=== PATIENT | female | born 1985 | race Caucasian/White ===

== ENCOUNTER → 2018-01-21 10:58 | Outpatient (CLI) | payer OTHER, SELFPAY ==
[2018-01-21 11:46] LABS: Add Manual Diff / Slide Review NO; Basophils Percent Auto 0.5 % (0-2); Eosinophils Percent Auto 1.8 % (2-4); Hematocrit 38.7 % (36-46); Hemoglobin 13.3 g/dL (12.0-16.0); Lymphocytes Percent Auto 15.4 % (25-40); Mean Corpuscular HGB Conc 34.5 % (30-36); Mean Corpuscular Hemoglobin 31.6 PG (26-34); Mean Corpuscular Volume 91.8 fL (80-100); Monocytes Percent Auto 6.9 % (3-14); Neutrophils Absolute Auto 6400 /uL (3000-5900); Neutrophils Percent Auto 75.4 % (50-75); Platelet Count 164 X10^3/uL (150-400); Red Blood Cell Count 4.21 X10^6/uL (4.0-5.2); Red Cell Distribution Width 12.1 % (11.6-14.8); White Blood Cell Count 8.4 X10^3/uL (4.5-11.0)
[2018-01-21 15:53] LABS: Hepatitis B Surface Antigen NEGATIVE s/c (NEGATIVE); Rubella Antibody IgG 33.3 IU/mL (>15)
[2018-01-21 16:11] LABS: HIV 1 and 2 Antibody NEGATIVE (NEGATIVE); Hep C Virus Ab w/Reflex Quant NEGATIVE s/c (NEGATIVE)
[2018-01-21 17:47] LABS: Appearance Urine UA CLEAR; Bilirubin Urine UA NEGATIVE (NEGATIVE); Color Urine UA YELLOW; Glucose Urine UA NEGATIVE (Normal); Ketones Urine UA NEGATIVE (NEGATIVE); Leukocyte Esterase Urine UA NEGATIVE (NEGATIVE); Nitrite Urine UA Negative (Negative); Occult Blood Urine UA NEGATIVE (Negative); Protein Urine UA NEGATIVE (Negative); Specific Gravity Urine UA 1.015 (1.000-1.035); Urobilinogen Urine UA 0.2 E.U./dL (0.2); pH Urine UA 6.5 (4.5-8.0)
[2018-01-23 19:26] LABS: HSV 2 IGG AB < 0.90 index (< 0.90); HSV1IGG < 0.90 index (< 0.90)
[2018-01-29 11:51] LABS: Rapid Plasma Reagin NON-REACTIVE
== END ==
PROVIDERS: PCP Specialist; Visit Provider Specialist
DX: Z34.90 Encounter for supervision of normal pregnancy, unspecified, unspecified trimester (principal)
CPT/HCPCS: 36415; 80055; 81003; 86695; 86696; 86703; 86787; 86803; 86850; 86900; 86901; 87086

== ENCOUNTER → 2018-02-04 12:47 | Outpatient (CLI) | payer OTHER, SELFPAY ==
[2018-02-04 13:03] LABS: Specimen Label KIT TEST
== END ==
PROVIDERS: PCP Specialist; Visit Provider Specialist
DX: Z34.91 Encounter for supervision of normal pregnancy, unspecified, first trimester (principal)
CPT/HCPCS: 36415

== ENCOUNTER → 2018-04-08 10:22 | Outpatient (CLI) | payer OTHER, SELFPAY ==
--- NOTE | 2018-04-08 10:23 | DI.US.S_ITS ---
PROCEDURE: US OB >= 14 WEEKS FETUS INDICATIONS: 20 WEEK ANATOMIC SURVEY OUTSIDE/PRIOR DATING DATA: Last menstrual period (LMP): 11/14/17. LMP-based estimated date of delivery (ANTONINO): 08/21/18. First dating scan (date and location): 04/08/18. Estimated date of delivery (ANTONINO) from first dating scan: 08/22/18. TECHNIQUE: Real-time scanning was performed of the fetus, with image documentation and biometric measurements. Endovaginal scanning: No COMPARISON: [facility], , OB <= 14 WEEKS FETUS, 01/21/2018, 10:12. FINDINGS: General: A single living intrauterine gestation is present. Presentation: Breech. Placenta: Placental position is anterior, without previa. Amniotic fluid index: 14.4 cm, normal range is 5-24 cm. heart rate: 137 beats per minute. Maternal cervical canal: 3.8 cm long. Normal lower limit is 2.5 cm. biometrics: Biparietal diameter: 20 weeks 5 days Head circumference: 20 weeks 4 days Abdominal circumference: 21 weeks Femur length: 19 weeks 5 days Estimated gestational age from initial scan: not applicable. Composite gestational age from present scan: 20 weeks 4 days Estimated weight and percentile: 353 g; 30th percentile Measurement variability for biometric dating: +/- 7 days from 14 weeks to 15 weeks 6 days gestation, +/- 10 days from 16 weeks to 21 weeks 6 days gestation, +/- 2 weeks from 22 weeks to 27 weeks 6 days gestation, +/- 3 weeks for 28 weeks gestation or later. weight reference: 4500 g or EFW >90/95% is considered macrosomia or large for gestational age. EFW <10% is small for gestational age. EFW 5% or less is considered intra-uterine growth restriction. Anatomic survey: Neuro: Ventricles are non-dilated at less than 10 mm. Cisterna magna is normal at 3-11 mm. Cerebellum is normal in size and morphology. Nuchal skin fold: Normal at less than 6 mm between 14-21 weeks gestational age. Face: Nose and lips, facial profile are normal. Spine: No evidence for spina bifida. Heart: 4-chambered heart is present, with normal ventricular outflow tracts. Diaphragm: Diaphragm is intact. Stomach: Left-sided stomach is present. Kidneys: No hydronephrosis. Normal is less than 5 mm in 2nd trimester, less than 7 mm in 3rd trimester. Cord: 3-vessel cord has orthotopic insertion. Bladder: Normal in size. Extremities: All 4 extremities identified. IMPRESSION: 1. Single living IUP redemonstrated and interval growth is normal. 2. Normal anatomic survey. Dictated by: Marc Peraza [facility] Interpreted: Rolf Gramajo MD on 04/08/2018 at 11:47 Approved by: Rolf Gramajo M.D. on 04/08/2018 at 14:07
== END ==
PROVIDERS: PCP Specialist; Visit Provider Specialist
DX: Z34.92 Encounter for supervision of normal pregnancy, unspecified, second trimester (principal); Z3A.20 20 weeks gestation of pregnancy
CPT/HCPCS: 76811

== ENCOUNTER → 2018-07-20 14:17 | Outpatient (CLI) | payer OTHER, SELFPAY ==
[2018-07-21 14:09] LABS: Strep Grp B PCR NEG for Grp B Strep
== END ==
PROVIDERS: PCP Specialist
DX: Z34.81 Encounter for supervision of other normal pregnancy, first trimester (principal)
CPT/HCPCS: 87653

== ENCOUNTER 2018-07-27 15:45 | Outpatient (CLI) | payer OTHER, SELFPAY ==
--- NOTE | 2018-07-27 17:01 | P.TNLD_ITS ---
Visit Information Visit Information Date of evaluation: 07/27/18 Primary OB Provider: Batsheva Hummel On-call OB Provider: Lou Parkinson Reason for Evaluation: Yes rule out labor Comments/Additional reasons for admission: Pt here with abdominal cramping and concerns for LOF. No vaginal bleeding. Feeling baby move regularly. Cramping started last night, around 30 minutes after intercourse. LOF occurred shortly after intercourse, no significant leaking since that time. Evaluation Evaluation Baseline heart rate: 130 Variability: Moderate (11-25) monitor accelerations: Present monitor decelerations: Absent Contraction Frequency (minutes): 6 Uterine Contraction Intensity: Mild Category of Tracing: I Cervical dilation (cm): 1 Cervical effacement (%): 60 station: 0 Non-invasive Membranes Rupture Test: negative Diagnosis, Plan/Disposition Final Diagnosis (1) contractions: Current Visit: No Status: Acute Plan/Disposition Plan: 33yo at 36w4d here with concerns for contractions and LOF. Negative amnisure. Pt is malcolm on monitor, however mild to palpation. Cervix 1cm external os, closed internal os and unchanged from multiple hours ago in [place]. Okay for discharge home. Had requested U/A be completed prior to discharge, but does not appear that this was completed. Recommend pt increase fluid intake, avoid intercourse short-term until contractions stop. Recommend staying on [facility] overnight to continue to monitor contractions, ensure don't worsen.
== END 2018-07-27 17:00 | disposition home or self-care (01) ==
LOC: OB 07-29 11:05
PROVIDERS: PCP Specialist; Visit Provider Family Medicine
DX: Z34.83 Encounter for supervision of other normal pregnancy, third trimester (principal); Z3A.36 36 weeks gestation of pregnancy; O47.9 False labor, unspecified
CPT/HCPCS: 59025; 59050; 84112; G0378; G0379

== ENCOUNTER 2018-08-03 20:12 | Inpatient (IN) | payer OTHER, SELFPAY ==
[2018-08-03] MEDS: LACTATED RINGERS 1,000 ML 100 ML IV (20:45)
[2018-08-03 20:52] LABS: Add Manual Diff / Slide Review NO; Basophils Percent Auto 0.6 % (0-2); Eosinophils Percent Auto 0.4 % (2-4); Hemoglobin 12.7 g/dL (12.0-16.0); Lymphocytes Percent Auto 10.9 % (25-40); Mean Corpuscular HGB Conc 34.4 % (30-36); Mean Corpuscular Hemoglobin 31.5 PG (26-34); Mean Corpuscular Volume 91.4 fL (80-100); Monocytes Percent Auto 5.6 % (3-14); Neutrophils Absolute Auto 10100 /uL (1500-7000); Neutrophils Percent Auto 82.5 % (50-75); Platelet Count 138 X10^3/uL (150-400); Red Blood Cell Count 4.05 X10^6/uL (4.0-5.2); White Blood Cell Count 12.3 X10^3/uL (4.5-11.0)
[2018-08-03] MEDS: ONDANSETRON 4 MG/2 ML INJ IV (21:52)
[2018-08-03 22:18] VITALS: BP 104/68
--- NOTE | 2018-08-04 07:28 | P.HPOB_ITS ---
OB HPI Date/Time Date of admission: 08/03/18 Date Patient Seen: 08/04/18 Time Patient Seen: 07:27 History of Present Condition Chief complaint: LABOR & DELIVERY : 2 Para: 0 Estimated Date of Delivery: 08/20/18 Estimated Gestational Age (weeks): 37 Narrative: Lyssa Dillon is a 33 year old female admitted with spontaneous rupture membranes in active labor History of Present care: none Dating criteria: LMP confirmed by 1st trimester US Ultrasounds: normal mid trimester US Obstetrical complications: none Medical complications: none Preadmission Labs Blood type: A (-) negative -: Antibody screen: negative, GBS status: negative, HBsAG: negative, HIV: negative, HSV 1: negative, HSV 2: negative and RPR/VDLR: negative -: Rubella: immune and Varicella: immune Cell-free DNA: Normal male Prior (ies) History: 2017 SAB Evaluation Evaluation Baseline heart rate: 135 Variability: Moderate (11-25) monitor accelerations: Present monitor decelerations: Absent Contraction Frequency (minutes): 2 Uterine Contraction Intensity: Moderate Category of Tracing: I Cervical dilation (cm): 9 Cervical effacement (%): 100 station: 0 Laboratory results: Laboratory Tests 08/03/18 08/03/18 20:14 20:14 WBC 12.3 H RBC 4.05 Hgb 12.7 Hct 37.0 MCV 91.4 MCH 31.5 MCHC 34.4 RDW 13.0 Plt Count 138 L Neut % (Auto) 82.5 H Lymph % (Auto) 10.9 L F[place]ardo % (Auto) 5.6 Eos % (Auto) 0.4 L Baso % (Auto) 0.6 Neut # (Auto) 96891 H Blood Type A Negative Antibody Screen Positive Antibody Identification Anti-D PFSH Medical History Exercise-induced asthma (Chronic) Social History Smoking Status: Never smoker Meds Home Medications Medication Instructions Recorded Confirmed Type vit-iron fum-folic ac 1 cap PO QDAY #0 06/12/17 08/03/18 History [Mynatal] omeprazole 40 mg capsule,delayed 40 mg PO DAILY #30 cap 05/10/18 08/03/18 Rx release Allergies Allergy/AdvReac Type Severity Reaction Status Date / Time epinephrine AdvReac Intermediate Fainting Verified 08/03/18 21:55 No Known Allergies Allergy Unknown Uncoded 08/03/18 20:40 Review of Systems Review of Systems Patient denies signs and symptoms of preeclampsia. She had spontaneous rupture of membranes. Good regular contractions. All systems reviewed & are unremarkable except as noted in HPI and below Exam Vital Signs (past 8 hours): Blood pressure 115/64, temperature 98.8?, pulse 64 Narrative Exam Narrative: HEENT exam within normal limits. Lungs are clear to auscultation and percussion. Heart is regular rate and rhythm no S3-S4 or murmurs. Abdomen is gravid. is vertex. Extremities with no edema and nontender. Objective Labs Result Diagrams: 08/03/18 20:14 Labs: Laboratory Results - last 24 hr 08/03/18 08/03/18 20:14 20:14 WBC 12.3 H RBC 4.05 Hgb 12.7 Hct 37.0 MCV 91.4 MCH 31.5 MCHC 34.4 RDW 13.0 Plt Count 138 L Neut % (Auto) 82.5 H Lymph % (Auto) 10.9 L [place] % (Auto) 5.6 Eos % (Auto) 0.4 L Baso % (Auto) 0.6 Neut # (Auto) 83085 H Blood Type A Negative Antibody Screen Positive Antibody Identification Anti-D Assessment and Plan (1) 37 weeks gestation of : Current visit: Yes Status: Acute Plan: Plan: 37wk 5d gestation in active labor. Patient requested epidural catheter. Anticipate vaginal delivery.
[2018-08-04] MEDS: OXYTOCIN PREMIX 30 UNIT/500 ML PLAST..BAG IV (08:20)
--- NOTE | 2018-08-04 12:10 | PM.OBPRVD ---
Delivery date: 08/04/18 Intrapartal events: None Induction method: none Delivery augmentation: pitocin Delivery monitor: external FHT and external uterine Route of delivery: Laceration description: Vaginal - 2nd Degree (Left sidewall) Estimated blood loss (mL): 200 Anesthesia type: Epidural Narrative: Patient arrived on Labor and delivery with spontaneous rupture membranes in active labor. She progressed normally. Category 1 tracing throughout labor. She did have a epidural for pain control. Patient did get started on Pitocin augmentation at 9 cm. She delivered spontaneously, over an intact perineum. The male infant was placed on the maternal abdomen. After the cord stopped pulsating the cord was clamped cut and cord bloods obtained. The placenta delivered spontaneously, intact, with 3 vessels. Patient was found to have a second-degree vaginal left sidewall tear that was repaired with 3 0 chromic suture. Both mother doing well. Baby weighed 6 lb 10 oz, 3010 g Estimated blood loss 200 cc. [place] Baby 1: gender: Male Presentation: vertex position: Right Occiput Anterior Placenta delivery description: Spontaneous cord vessel description: 3 Vessels score (1 min): 8 score (5 min): 9 Plan for aftercare: Routine post care
[2018-08-04] MEDS: IBUPROFEN 600 MG TABLET PO (20:29)
[2018-08-04] MEDS: DERMOPLAST SPRAY 20% 60 ML 1 SPRAY TOP (20:29)
[2018-08-05] MEDS: IBUPROFEN 600 MG TABLET PO ×2 (03:59→10:03)
--- NOTE | 2018-08-05 07:22 | PM.OBDS.1 ---
Discharge Providers Date of admission: 08/03/18 20:12 Primary care physician: Batsheva Hummel MD Consults: 08/03/18 20:14 Consult to Anesthesiology Urgent Comment: Consulting Provider: Anesthesiologist Reason for consultation: Epidural Has provider been notified: No 08/04/18 12:17 Consult to Tool And Machine Maintainer Routine Comment: Discharge provider: Batsheva Hummel MD Discharge Date: 08/05/18 Summary Date Patient Seen: 08/05/18 Time Patient Seen: 07:24 Hospital Course: Patient arrived on Labor and delivery with spontaneous rupture membranes in active labor. She received an epidural catheter for pain control. She had spontaneous delivery of a viable male infant. She had a second-degree vaginal laceration that was repaired. Patient denies any signs or symptoms of preeclampsia. She is urinating and ambulating well. Blood pressure 104/64 pulse 66 temperature 98.3? Abdomen is soft, nontender. Uterus is firm, at U, nontender. Mild lochia. Extremities without edema, nontender. Patient is rubella immune. Baby is Rh negative so no RhoGAM is needed. Patient received Tdap in the 3rd trimester. Peripartum Data Delivery Method: Natural Vaginal Laceration description: Vaginal - 2nd Degree Procedures: Epidural catheter, vaginal delivery, repair of second-degree vaginal tear. complications: none Discharge Diagnosis (1) Vaginal delivery: Status: Acute (2) 37 weeks gestation of : Status: Acute Status at Discharge Functional status at discharge: independent ambulation Overall status at discharge: patient is progressing back to baseline Time Spent with Patient Total time spent providing and/or coordinating discharge services: Less than 30 minutes Objective Labs Result Diagrams: 08/03/18 20:14 Labs: Laboratory Results - last 24 hr 08/03/18 20:14 Antibody Identification Anti-D Discharge Plan Discharge Plan Patient Disposition: Home Discharge Med Rec/Prescriptions Prescriptions: New hydrocodone-acetaminophen 5-325 mg Tablet 2 tab PO Q4HR Qty: 20 RF: 0 ibuprofen 600 mg Tablet 600 mg PO Q6HR PRN (Reason: Pain, Mild (1-3)) Qty: 30 RF: 0 No Action vit-iron fum-folic ac [Mynatal] 1 EACH capsule 1 cap PO QDAY Qty: 0 RF: 0 omeprazole 40 mg capsule,delayed release(DR/EC) 40 mg PO DAILY Qty: 30 RF: 1 Follow up/Referrals: Foist,Batsheva B, MD [Primary Care Provider] - 1 Month (September 02 in [place]) Provider Discharge Instructions Diet: Regular Activity: Nothing in vagina for 4 weeks Skin/Wound/Dressing Care Report to your healthcare provider any signs of infection, such as:: chills, fever and increased pain Discharge Data Primary Care Provider: Batsheva Hummel Attending Provider: Batsheva Hummel Admit Date/Time: 08/03/18 20:12
[2018-08-05 08:16] LABS: Add Manual Diff / Slide Review NO; Basophils Percent Auto 0.4 % (0-2); Eosinophils Percent Auto 1.2 % (2-4); Hematocrit 32.2 % (36-46); Hemoglobin 10.9 g/dL (12.0-16.0); Lymphocytes Percent Auto 12.8 % (25-40); Mean Corpuscular HGB Conc 33.8 % (30-36); Mean Corpuscular Hemoglobin 31.6 PG (26-34); Mean Corpuscular Volume 93.7 fL (80-100); Monocytes Percent Auto 7.6 % (3-14); Neutrophils Absolute Auto 10500 /uL (1500-7000); Platelet Count 114 X10^3/uL (150-400); Red Blood Cell Count 3.44 X10^6/uL (4.0-5.2); Red Cell Distribution Width 13.1 % (11.6-14.8); White Blood Cell Count 13.5 X10^3/uL (4.5-11.0)
[2018-08-05 13:01] VITALS: BP 101/60; PULSE 77; RESP 16; TEMP 36.7
== END 2018-08-05 14:15 | disposition home or self-care (01) | DRG 807 ==
PROVIDERS: Admitting Provider Specialist; PCP Specialist; Visit Provider Specialist
DX: O71.4 Obstetric high vaginal laceration alone (principal); Z37.0 Single live birth; Z3A.37 37 weeks gestation of pregnancy
CPT/HCPCS: 01967; 36415; 59050; 59400; 85025; 86850; 86870; 86900; 86901; G0379; J2405; J2590; J3010

== ENCOUNTER → 2019-09-22 14:22 | Outpatient (ROUT) | payer OTHER, SELFPAY ==
[2019-09-22 16:56] LABS: Urine N gonorrhoeae NOT DETECTED
[2019-09-22 17:13] LABS: Urine Chlamydia NOT DETECTED
== END ==
PROVIDERS: PCP Specialist; Visit Provider Specialist
DX: Z34.81 Encounter for supervision of other normal pregnancy, first trimester (principal)
CPT/HCPCS: 87491; 87591

== ENCOUNTER → 2019-12-02 11:59 | Outpatient (CLI) | payer OTHER, SELFPAY ==
[2019-12-02 12:44] LABS: Appearance Urine UA CLEAR; Bilirubin Urine UA NEGATIVE (NEGATIVE); Color Urine UA YELLOW; Glucose Urine UA NEGATIVE (Negative); Ketones Urine UA NEGATIVE (NEGATIVE); Leukocyte Esterase Urine UA TRACE (NEGATIVE); Nitrite Urine UA NEGATIVE (Negative); Occult Blood Urine UA NEGATIVE (Negative); Protein Urine UA NEGATIVE (Negative); Urobilinogen Urine UA 0.2 E.U./dL (0.2)
[2019-12-02 12:50] LABS: Add Manual Diff / Slide Review NO; Basophils Absolute Auto 0 /uL (0-100); Basophils Percent Auto 0.2 % (0-2); Eosinophils Absolute Auto 100 /uL (0-450); Eosinophils Percent Auto 1.7 % (2-4); Hematocrit 36.6 % (36-46); Hemoglobin 12.7 g/dL (12.0-16.0); Lymphocytes Absolute Auto 1400 /uL (1100-4500); Lymphocytes Percent Auto 17.9 % (25-40); Mean Corpuscular HGB Conc 34.6 % (30-36); Mean Corpuscular Hemoglobin 31.9 PG (26-34); Monocytes Absolute Auto 500 /uL (0-900); Neutrophils Absolute Auto 5900 /uL (1500-7000); Neutrophils Percent Auto 74.2 % (50-75); Platelet Count 149 X10^3/uL (150-400); Red Blood Cell Count 3.98 X10^6/uL (4.0-5.2); Red Cell Distribution Width 12.7 % (11.6-14.8)
[2019-12-02 13:09] LABS: Amorphous Sediment Urine 1+; Bacteria Urine Many (>30); RBC Urine None Seen (0-5/HPF); Squamous Epithelial Cell Urine 5-10 /HPF (0-5/HPF); WBC Urine 1-5/HPF (0-5/HPF); pH Urine UA 7.5 (4.5-8.0)
[2019-12-03 05:36] LABS: RPR Screen Non Reactive (Non Reactive)
[2019-12-03 08:38] LABS: Varicella IgG Antibody 513 index (Immune >165)
[2019-12-05 15:56] LABS: Hepatitis B Surface Antigen NEGATIVE s/c (NEGATIVE); Rubella Antibody IgG 30.9 IU/mL (>15)
[2019-12-05 16:13] LABS: HIV 1 & 2 Ab/Ag 4th Gen Combo NEGATIVE (NEGATIVE); Hep C Virus Ab w/Reflex Quant NEGATIVE s/c (NEGATIVE)
[2019-12-06 20:35] LABS: AFP, Serum 64.6 ng/mL (.); Calc Gestational Age Ultrasound (.); Estriol, Free 1.44 ng/mL (.); Inhibin A, Dimeric 120.02 pg/mL (.); Inhibin A, MoM 0.69 (.); Maternal Ethnicity Caucasian (.); Maternal Weight 136 lbs (.); Number of Fetuses No (.); OSBR Risk 1 IN 1944 (.); Results Report (.); Test Results *Screen Negative* (.); hCG, MoM 0.85 (.); hCG, Serum 31030 mIU/mL (.)
== END ==
PROVIDERS: PCP Nurse Practitioner Family; Referring Provider Specialist; Visit Provider Specialist
DX: Z34.81 Encounter for supervision of other normal pregnancy, first trimester (principal)
CPT/HCPCS: 36415; 80055; 81003; 81015; 82105; 82677; 84702; 86336; 86787; 86803; 86850; 86900; 86901; 87086; 87389

== ENCOUNTER → 2019-12-26 10:11 | Outpatient (CLI) | payer OTHER, SELFPAY ==
--- NOTE | 2019-12-26 10:12 | DI.US.S_ITS ---
PROCEDURE: US OB >= 14 WEEKS FETUS INDICATIONS: ANATOMY SCAN OUTSIDE/PRIOR DATING DATA: Last menstrual period (LMP): 07/18/19. LMP-based estimated date of delivery (ANTONINO): 04/23/20. First dating scan (date and location): 09/22/19. Estimated date of delivery (ANTONINO) from first dating scan: 05/09/20. TECHNIQUE: Real-time scanning was performed of the fetus, with image documentation and biometric measurements. Endovaginal scanning: Not needed COMPARISON: [facility], OB >= 14 WEEKS FETUS, 12/26/2019, 9:54. [facility], , OB >= 14 WEEKS FETUS, 06/10/2018, 11:47. FINDINGS: General: A single living intrauterine gestation is present. Presentation: Variable. Placenta: Placental position is posterior, without previa. Amniotic fluid index: 14.3 cm, normal range is 5-24 cm. heart rate: 147 beats per minute. Maternal cervical canal: 4.4 cm long. Normal lower limit is 2.5 cm. biometrics: Biparietal diameter: 5.2 cm, 21 weeks 5 days Head circumference: 19.1 cm, 21 weeks 2 days Abdominal circumference: 16.0 cm, 21 weeks 1 day Femur length: 3.4 cm, 20 weeks 5 days Estimated gestational age from initial scan: 20 weeks 5 days Composite gestational age from present scan: 21 weeks 0 days Estimated weight: 393 g Measurement variability for biometric dating: +/- 7 days from 14 weeks to 15 weeks 6 days gestation, +/- 10 days from 16 weeks to 21 weeks 6 days gestation, +/- 2 weeks from 22 weeks to 27 weeks 6 days gestation, +/- 3 weeks for 28 weeks gestation or later. weight reference: 4500 g or EFW >90/95% is considered macrosomia or large for gestational age. EFW <10% is small for gestational age. EFW 5% or less is considered intra-uterine growth restriction. Anatomic survey: Neuro: Ventricles are non-dilated at less than 10 mm. Cisterna magna is normal at 3-11 mm. Cerebellum is normal in size and morphology. Nuchal skin fold: Normal at less than 6 mm between 14-21 weeks gestational age. Face: Nose and lips, facial profile are normal. Spine: No evidence for spina bifida. Heart: 4-chambered heart is present, with normal ventricular outflow tracts. Diaphragm: Diaphragm is intact. Stomach: Left-sided stomach is present. Kidneys: No hydronephrosis. Normal is less than 5 mm in 2nd trimester, less than 7 mm in 3rd trimester. Cord: 3-vessel cord has orthotopic insertion. Bladder: Normal in size. Extremities: All 4 extremities identified. IMPRESSION: Appropriate interval growth, no anomaly seen, the delivery date is projected to be centered on 05/09/20. Dictated by: Jcarlos Madsen M.D. on 12/26/2019 at 11:49 Approved by: Jcarlos Madsen M.D. on 12/26/2019 at 11:53
== END ==
PROVIDERS: PCP Nurse Practitioner Family; Referring Provider Specialist; Visit Provider Specialist
DX: Z36.89 Encounter for other specified antenatal screening (principal); Z3A.21 21 weeks gestation of pregnancy
CPT/HCPCS: 76811

== ENCOUNTER 2020-04-09 15:06 | Inpatient (IN) | payer OTHER, SELFPAY ==
--- NOTE | 2020-04-09 16:02 | P.HPOB_ITS ---
OB HPI Date/Time Date of admission: 04/09/20 Date Patient Seen: 04/09/20 Time Patient Seen: 16:03 History of Present Condition Chief complaint: observation of labor : 3 Para: 1 Estimated Date of Delivery: 05/09/20 Estimated Gestational Age (weeks): 35 Narrative: Lyssa Dillon is a 34 year old female admitted with premature rupture membranes History of Present care: good care, initiated at week # (7), number of visits (9) and ashlee nds weight gain (24) Dating criteria: based on 1st trimester US only Ultrasounds: normal mid trimester US Obstetrical complications: none Medical complications: none Preadmission Labs Blood type: A (-) negative -: Antibody screen: negative, GBS status: unknown, HBsAG: negative, HIV: negative and RPR/VDLR: negative -: Chlamydia screen: not detected and Gonorrhea screen: not detected -: Rubella: immune HCAB: negative Quad screen: Normal 1 hr GTT: 120 Evaluation Evaluation Baseline heart rate: 130 Variability: Moderate (11-25) monitor accelerations: Present monitor decelerations: Absent Contraction Frequency (minutes): 5 Uterine Contraction Intensity: Moderate Category of Tracing: Reactive Cervical dilation (cm): 1 Cervical effacement (%): 80 station: -2 Non-invasive Membranes Rupture Test: positive [facility] Medical History (Updated 10/21/19 @ 09:55 by Batsheva Hummel MD) Anxiety (Acute) 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) Depression (Acute) Exercise-induced asthma (Chronic) Rh negative, maternal (Acute) Seasonal allergies (Acute) UTI (urinary tract infection) (Acute) Vaginal delivery (Inactive) Surgical History (Updated 09/14/19 @ 15:26 by Jo Ann Harrell RN) H/O sinus surgery (Acute) History of surgical removal of lesion (Acute) Family History (Updated 09/14/19 @ 15:26 by Jo Ann Harrell RN) Family/Other Breast cancer Social History marital status: details: Karlo Dillon number of children: 1 household members: spouse and children lives independently: Yes 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 seatbelt use: always water heater temp set < 120 deg: Yes working smoke detector in home: Yes fire extinguisher in home: Yes carbon monox detector in home: Yes firearms in home: Yes firearms unloaded and locked: Yes do you feel safe at home: Yes Smoking Status: Never smoker second hand exposure: No alcohol intake: former substance use type: does not use during the past year weight has: remained stable well-balanced diet: daily or most days daily servings fruits/ve or more times/day caffeine: Yes eating out: rarely or never Type(s) of exercise: aerobic and other (HIIT) frequency: 3-4 times per week duration: 30-45 minutes/day Meds Home Medications and Allergies Home Medications Medication Instructions Recorded Confirmed Type Mynatal 1 cap PO QDAY #0 06/12/17 04/09/20 History Double Electric breast Pump and #1 each 01/27/20 04/09/20 Rx Supplies Allergies Allergy/AdvReac Type Severity Reaction Status Date / Time epinephrine AdvReac Intermediate Fainting Verified 03/09/20 15:22 Review of Systems Review of Systems Narrative: Patient had spontaneous rupture membranes at 7:00 a.m. this morning. She is just now starting to feel more contractions. Good movement. No headaches, scotomata, epigastric pain. ROS: Yes All systems reviewed with the patient and are negative except as otherwise documented Exam Vital Signs (past 8 hours): Blood pressure 103/64, pulse of 81, afebrile Narrative Exam Narrative: HEENT exam within normal limits. Lungs are clear to auscultation percussion. Heart is regular rate and rhythm no S3-S4 or murmurs. Abdomen is gravid. Fetus is vertex. Extremities without edema and nontender. Objective Labs Result Diagrams: 04/09/20 16:30 Assessment and Plan Assessment and Plan Assessment and Plan narrative: 35 week 5 day gestation with spontaneous rupture membranes just starting into early labor. Group B strep had not been done yet so swab obtained. Will start penicillin until those results return. Patient is requesting epidural when she is more pain. Patient wishes to wait before starting Pitocin to see if she goes into labor on her own. Discussed we would like her to deliver prior to 7:00 a.m. tomorrow morning because of the prolonged rupture membranes.
[2020-04-09] MEDS: LACTATED RINGERS 1,000 ML 100 ML IV ×2 (16:35→22:47)
[2020-04-09 16:49] LABS: Add Manual Diff / Slide Review NO; Basophils Absolute Auto 0 /uL (0-100); Basophils Percent Auto 0.2 % (0-2); Eosinophils Absolute Auto 100 /uL (0-450); Eosinophils Percent Auto 1.4 % (2-4); Hematocrit 38.9 % (36-46); Hemoglobin 13.3 g/dL (12.0-16.0); Lymphocytes Absolute Auto 1600 /uL (1100-4500); Lymphocytes Percent Auto 17.9 % (25-40); Mean Corpuscular HGB Conc 34.3 % (30-36); Mean Corpuscular Hemoglobin 31.6 PG (26-34); Mean Corpuscular Volume 92.1 fL (80-100); Monocytes Absolute Auto 600 /uL (0-900); Monocytes Percent Auto 7.2 % (3-14); Neutrophils Absolute Auto 6500 /uL (1500-7000); Neutrophils Percent Auto 73.3 % (50-75); Platelet Count 148 X10^3/uL (150-400); Red Blood Cell Count 4.22 X10^6/uL (4.0-5.2); Red Cell Distribution Width 12.9 % (11.6-14.8); White Blood Cell Count 8.9 X10^3/uL (4.5-11.0)
[2020-04-09] MEDS: PENICILLIN G POTASSIUM 5,000,000 UNIT in DEXTROSE 5% IN WATER 250 ML IV (17:15)
[2020-04-09 17:30] VITALS: BP 103/64
[2020-04-09 17:50] LABS: Strep Grp B PCR NEG for Grp B Strep
[2020-04-09 18:06] LABS: COVID19 -Nasal RAPID Negative (Negative)
[2020-04-09] MEDS: OXYTOCIN PREMIX 30 UNIT/500 ML PLAST..BAG IV (21:10)
[2020-04-09] MEDS: FENT 2MCG/ML BUPIV 0.125% EPI 200 MCG/100 ML PLAST..BAG 10 MCG EPIDURAL (22:48)
[2020-04-10] MEDS: FENT 2MCG/ML BUPIV 0.125% EPI 200 MCG/100 ML PLAST..BAG 6 MCG EPIDURAL ×2 (05:24→14:20)
[2020-04-10] MEDS: LACTATED RINGERS 1,000 ML 100 ML IV ×2 (06:08→10:48)
--- NOTE | 2020-04-10 08:55 | PM.OBPNLAB ---
Date/Time Date Patient Seen: 04/10/20 Time Patient Seen: 08:55 Pain Control Pain control: epidural Pelvic Exam Dilation (cm): 5 Effacement (%): 80 station: -3 Amniotic membrane status: Ruptured Contractions Contractions on admission: regular Monitor mode: Internal (Internal just placed) Pitocin rate (mU/min): 24 Contraction frequency (min): 3 Contraction duration (min): 1 Contraction pattern: Regular Contraction intensity: Moderate Intrauterine tone measurement: 90 Status status: Category ll Heart Rate Baseline: 130 Monitor Accelerations: Present Monitor Decelerations: Episodic Monitor Variability: Moderate Assessment and Plan Comments: Patient with very slow progress in labor now with spontaneous rupture membranes for over 24 hours. Internal toco placed to make sure contractions are adequate.
--- NOTE | 2020-04-10 08:58 | PM.OBPNLAB ---
Pelvic Exam Dilation (cm): 5 Effacement (%): 80 station: -3 Amniotic membrane status: Ruptured Contractions Monitor mode: Internal (Internal just placed) Contraction frequency (min): 3 Contraction pattern: Regular Contraction intensity: Moderate Intrauterine tone measurement: 90 Status status: Category ll Assessment and Plan Comments: Will start antibiotic prophylaxis
[2020-04-10] MEDS: CEFAZOLIN 1 GM/50 ML FROZ.PIGGY IV ×2 (09:31→17:47)
[2020-04-10] MEDS: ONDANSETRON 4 MG/2 ML INJ IV (13:24)
--- NOTE | 2020-04-10 18:51 | PM.OBPRVD ---
Events: Labor < 37 Weeks Labor & Delivery Delivery date: 04/10/20 Intrapartal events: Prolonged Labor > 20 hours Delivery augmentation: pitocin Delivery monitor: external FHT, external uterine and internal uterine Route of delivery: L&D Laceration Description: None Estimated blood loss (mL): 300 Anesthesia type: Epidural Narrative: Patient arrived on Labor and delivery after premature rupture membranes without active labor. She tried nipple stimulation and then was started on IV Pitocin. She received an epidural catheter for pain control. She was not making good progress and internal toco was placed to confirm adequate contractions. Patient eventually became complete and was pushing. There were deep decelerations with pushing but she was making progress. She had a spontaneous vaginal delivery over an intact perineum. There was a tight nuchal cord x2 that was released. The was initially placed on maternal abdomen but decision was made to take him to the warmer. He responded quite quickly with 1 very short episode CPAP. The cord pH is were perform with pH of venous of 7.281 pCO2 40 for PO2 26 base excess -6 arterial 7.289, pCO2 41.6 p.o. to 28 base excess -7. Cord bloods were obtained for Rh negative status. The placenta delivered spontaneously, intact, with 3 vessels. The patient did not have any cervical, vaginal, or perineal tears. Both the and mother doing well. Baby 1: gender: Male Presentation: vertex position: Right Occiput Anterior Placenta delivery description: Spontaneous cord vessel description: Nuchal Cord (X2) score (1 min): 8 score (5 min): 9 Plan for aftercare: Routine care
[2020-04-10] MEDS: IBUPROFEN 600 MG TABLET PO (20:44)
[2020-04-10] MEDS: DERMOPLAST SPRAY 20% 60 ML 1 SPRAY TOP (20:44)
[2020-04-10] MEDS: ACETAMINOPHEN 325 MG TABLET 650 MG PO (20:44)
[2020-04-11] MEDS: IBUPROFEN 600 MG TABLET PO ×4 (02:27→23:04)
[2020-04-11] MEDS: ACETAMINOPHEN 325 MG TABLET 650 MG PO ×4 (02:28→23:04)
[2020-04-11 06:10] LABS: Add Manual Diff / Slide Review NO; Basophils Absolute Auto 100 /uL (0-100); Basophils Percent Auto 0.7 % (0-2); Eosinophils Absolute Auto 100 /uL (0-450); Eosinophils Percent Auto 0.9 % (2-4); Hemoglobin 11.7 g/dL (12.0-16.0); Lymphocytes Absolute Auto 1800 /uL (1100-4500); Lymphocytes Percent Auto 14.3 % (25-40); Mean Corpuscular HGB Conc 34.5 % (30-36); Mean Corpuscular Hemoglobin 31.8 PG (26-34); Mean Corpuscular Volume 92.3 fL (80-100); Monocytes Absolute Auto 1000 /uL (0-900); Monocytes Percent Auto 8.1 % (3-14); Neutrophils Absolute Auto 9700 /uL (1500-7000); Platelet Count 118 X10^3/uL (150-400); Red Blood Cell Count 3.69 X10^6/uL (4.0-5.2); Red Cell Distribution Width 13.2 % (11.6-14.8); White Blood Cell Count 12.8 X10^3/uL (4.5-11.0)
[2020-04-11] MEDS: DOCUSATE 100 MG CAPSULE PO (08:32)
--- NOTE | 2020-04-11 16:37 | P.PNOB_ITS ---
Subjective - OB Subjective Patient comments: no complaints [place] baby status: doing well and nursing well feeding status: exclusively breast feeding Date Patient Seen: 04/11/20 Time Patient Seen: 13:00 Interval history: Patient is postoperative day 1 spontaneous vaginal delivery. Patient is doing well. Baby needs to stay until tomorrow due to early gestational age and prolonged rupture membranes. Baby is nursing well. No concerns. Exam Vital Signs (past 8 hours): Blood pressure 105/65, pulse of 54, temperature 98.4? Narrative Exam Narrative: Abdomen is soft, nontender. Uterus is firm, at U, nontender. Mild lochia. Extremities without edema and nontender. Patient will need RhoGAM as the baby is Rh positive Objective Labs Result Diagrams: 04/11/20 05:55 Labs: Laboratory Results - last 24 hr 04/11/20 04/11/20 05:55 05:55 WBC 12.8 H RBC 3.69 L Hgb 11.7 L Hct 34.0 L MCV 92.3 MCH 31.8 MCHC 34.5 RDW 13.2 Plt Count 118 L Neut % (Auto) 76.0 H Lymph % (Auto) 14.3 L Petroleum % (Auto) 8.1 Eos % (Auto) 0.9 L Baso % (Auto) 0.7 Neut # (Auto) 9700 H Lymph # (Auto) 1800 Petroleum # (Auto) 1000 H Eos # (Auto) 100 Baso # (Auto) 100 Maternal Bleed Negative Assessment & Plan Assessment and Plan (1) Vaginal delivery: Status: Acute Plan day: 1 plan OB: routine care Time Spent With Patient Time: Total time spent is greater than 50% in coordination of care (as documented) at patient's floor/unit and/or counseling patient: Time with patient: less than 15 minutes
[2020-04-12] MEDS: IBUPROFEN 600 MG TABLET PO (06:18)
[2020-04-12] MEDS: ACETAMINOPHEN 325 MG TABLET 650 MG PO (06:18)
--- NOTE | 2020-04-12 08:41 | P.DS_ITS ---
Discharge Providers Provider Date of admission: 04/09/20 15:06 Discharge Date: 04/12/20 Primary care physician: SHAHRIAR Red[place] Consults: 04/09/20 15:54 Consult to Anesthesiology Urgent Comment: Consulting Provider: Anesthesiologist Reason for consultation: Epidural Has provider been notified: No 04/11/20 18:49 Consult to Master Control Supervisor Routine Comment: Discharge provider: Batsheva Hummel MD Summary Hospital Course Date Patient Seen: 04/12/20 Time Patient Seen: 08:41 Procedures: Pitocin augmentation of labor, IV antibiotic prophylaxis for prolonged rupture membranes, Pitocin augmentation of labor, epidural catheter, spontaneous vaginal delivery Hospital Course: Patient arrived on Labor and delivery with premature rupture membranes. She received IV antibiotics for prolonged rupture membranes. She received Pitocin to augment labor. She had a spontaneous vaginal delivery of a viable male . He weighed 7 lb 7 oz. She did well . No signs or symptoms of preeclampsia. She is urinating and ambulating well and minimal pain. Peripartum Data Delivery Method: Natural Vaginal Laceration Description: None complications: none Almo 1: Gender: Male Disposition of : home Discharge Diagnosis (1) Vaginal delivery: Status: Acute Status at Discharge Cognitive/behavioral status at discharge: oriented Functional status at discharge: independent ambulation Overall status at discharge: patient is progressing back to baseline Time Spent with Patient Time attestation: Total time spent providing and/or coordinating discharge services: Time spent: Less than 30 minutes Objective Labs Result Diagrams: 04/11/20 05:55 Exam Vital Signs (past 8 hours): Blood pressure 116/72, pulse of 52, temperature 97.7? Narrative Exam Narrative: Abdomen is soft, nontender. Uterus is firm, at U, nontender. Mild lochia. Extremities without edema and nontender. Patient is rubella immune, she received the Tdap in the 3rd trimester room, she received RhoGAM prior to discharge. Discharge Plan Discharge Plan Patient Disposition: Home Discharge orders & Medications Prescriptions: Continued Mynatal 1 EACH capsule 1 cap PO QDAY Qty: 0 RF: 0 (DME) Double Electric breast Pump and Supplies See Rx Instructions .ROUTE .MEDSUPPLY Qty: 1 RF: 0 Follow up/Referrals: Gosia Salazar ARNP [Primary Care Provider] - Batsheva Hummel MD [Physician] - 05/02/20 ([place] appointment on April at 2:30 pm; check in time 2:15pm) Diet/Activity/Treatments Diet: Regular Activity: Nothing in vagina for 4 weeks Skin/Wound/Dressing Care Report to your healthcare provider any signs of infection, such as:: chills, fever and increased pain Visit Report/Discharge Packet Instructions: DI for Labor and Delivery, Vaginal Visit Report Forms: Patient Portal/API, Stroke Signs & Symptoms Discharge Data Primary Care Provider: Gosia Salazar Discharges patient from system. Discharge Date/Time: 04/12/20 10:11
[2020-04-12 08:55] VITALS: BP 112/71; PULSE 78; RESP 16; TEMP 36.7
[2020-04-12] MEDS: DOCUSATE 100 MG CAPSULE PO (09:14)
[2020-04-12] MEDS: RHO(D) IMMUNE GLOBULIN 1,500 UNIT SYRINGE 1500 UNIT IM (09:16)
== END 2020-04-12 10:11 | disposition home or self-care (01) | DRG 807 ==
PROVIDERS: Admitting Provider Specialist; PCP Nurse Practitioner Family; Referring Provider Specialist; Visit Provider Specialist
DX: O42.013 Preterm premature rupture of membranes, onset of labor within 24 hours of rupture, third trimester (principal); Z37.0 Single live birth; O63.0 Prolonged first stage (of labor); O69.1XX0 Labor and delivery complicated by cord around neck, with compression, not applicable or unspecified; Z3A.35 35 weeks gestation of pregnancy; Z11.59 Encounter for screening for other viral diseases
CPT/HCPCS: 01967; 36415; 59050; 59400; 84112; 85025; 85461; 86850; 86900; 86901; 87635; 87653; 94762; G0379; J2405; J2540; J2590; J2790

== ENCOUNTER → 2020-11-16 10:37 | Outpatient (CLI) | payer OTHER, SELFPAY ==
[2020-11-16] MEDS: COVID-19 VACC, Ad26(JANSSEN)/PF 0.5 ML IM (10:46)
== END ==
PROVIDERS: PCP Nurse Practitioner Family; Visit Provider Internal Medicine
DX: Z23 Encounter for immunization (principal)
CPT/HCPCS: 0031A; 91303

== ENCOUNTER → 2023-09-22 12:31 | Outpatient (CLI) | payer OTHER, SELFPAY ==
--- NOTE | 2023-09-22 12:33 | DI.RAD.S_ITS ---
PROCEDURE: XR KNEE LT 3V INDICATIONS: skiing accident, knee pain/injury TECHNIQUE: 3 views of the knee were acquired. COMPARISON: None. FINDINGS: Bones: No fractures or dislocations. Nonaggressive appearing sclerotic lesion in the proximal tibia may represent ossified fibrous cortical defect. Soft tissues: No joint effusion. No suspicious soft tissue calcifications. IMPRESSION: No acute bony abnormality or significant effusion. Dictated by: Devika Gallego MD, PhD on 09/22/2023 at 13:04 Approved by: Devika Gallego MD, PhD on 09/22/2023 at 13:07
--- NOTE | 2023-09-22 12:33 | DI.RAD.S_ITS ---
PROCEDURE: XR KNEE RT 3V INDICATIONS: skiing accident, knee pain/injury TECHNIQUE: 3 views of the knee were acquired. COMPARISON: None. FINDINGS: Bones: No fractures or dislocations. No suspicious bony lesions. Soft tissues: Small joint effusion. No suspicious soft tissue calcifications. IMPRESSION: No acute bony abnormality or significant effusion. Small nonspecific joint effusion. Dictated by: Devika Gallego MD, PhD on 09/22/2023 at 12:59 Approved by: Devika Gallego MD, PhD on 09/22/2023 at 13:00
== END ==
PROVIDERS: PCP Physician Assistant Medical; Referring Provider Physician Assistant Surgical; Visit Provider Physician Assistant Surgical
DX: S89.90XA Unspecified injury of unspecified lower leg, initial encounter (principal); M25.561 Pain in right knee; M25.562 Pain in left knee; M25.461 Effusion, right knee; V00.328A Other snow-ski accident, initial encounter
CPT/HCPCS: 73562